=== PATIENT | female | born 2000 | race Two or more races ===

== ENCOUNTER 2022-05-11 20:56 | Inpatient (IN) | payer MEDICAID, OTHER ==
[~2022-05-11] VITALS: Ht 165.1 cm; Wt 81.2 kg
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
[2022-05-11] MEDS ORDERED: ONDANSETRON HCL/PF 4 MG/2 ML VIAL ONE ×2 (21:15→21:20)
[2022-05-11] MEDS ORDERED: MORPHINE SULFATE INJ 4 MG/ML DISP.SYRIN ONE ×2 (21:16→21:20)
--- NOTE | 2022-05-11 21:21 | NUR ---
PATIENT TAKE TO CT VIA [facility]
--- NOTE | 2022-05-11 21:24 | NUR ---
WASTED MORPHINE 4MG AND ZOFRAN 4MG DUE TO ALREADY GIVEN BY ANOTHER NURSE. WASTE VERIFIED BY 2 RNS.
[2022-05-11] MEDS ORDERED: ONDANSETRON HCL/PF 4 MG/2 ML VIAL IV ONE (21:30)
[2022-05-11] MEDS ORDERED: MORPHINE SULFATE INJ 2 MG/ML DISP.SYRIN IV ONE (21:30)
--- NOTE | 2022-05-11 21:58 | NUR ---
COVID SWAB COLLECTED
--- NOTE | 2022-05-11 21:58 | NUR ---
CALLED [facility] DR. HERNANDEZ NO ANSWER, WAS TOLD THEY WOULD CALL BACK WHEN THEY GET AHOLD OF HIM.
[2022-05-11] MEDS ORDERED: IV NS 0.9% 1,000 ML IV ONE (22:00)
[2022-05-11] MEDS ORDERED: HYDROMORPHONE 1 MG/1 ML DISP.SYRIN IV ONE ×2 (22:00→23:00)
[2022-05-11] MEDS ORDERED: HYDROMORPHONE 1 MG/1 ML DISP.SYRIN ONE ×2 (22:06→22:58)
--- NOTE | 2022-05-11 22:09 | NUR ---
[employer] AT PT'S BEDSIDE
[2022-05-11 23:17] LABS: BASOPHILS # (AUTO) 0.1 K/uL (0.0-0.2); BASOPHILS % (AUTO) 0.3 % (0.0-2.0); EOSINOPHILS % (AUTO) 0.5 % (0.0-6.0); HEMATOCRIT 33 % (33-45); HEMOGLOBIN 10.4 g/dL (11.5-14.8); LYMPHOCYTES # (AUTO) 1.4 K/uL (0.8-4.8); LYMPHOCYTES % (AUTO) 7.7 % (20.0-44.0); MEAN CORPUSCULAR HGB CONC 32 g/dl (31.0-36.0); MEAN CORPUSCULAR VOLUME 66 fL (82-100); MONOCYTES # (AUTO) 1.2 K/uL (0.1-1.30); MONOCYTES % (AUTO) 6.7 % (2.0-12.0); NEUTROPHILS # (AUTO) 15.8 K/uL (1.8-8.9); NEUTROPHILS % (AUTO) 84.8 % (43.0-81.0); PLATELET COUNT (AUTO) 278 K/uL (150-450); WHITE BLOOD COUNT (AUTO) 18.6 K/uL (4.3-11.0)
[2022-05-11 23:28] LABS: CALCIUM, SERUM 8.2 mg/dL (8.5-10.1); CREATININE 0.7 mg/dL (0.6-1.3); POTASSIUM 3.8 mmol/L (3.5-5.1)
[2022-05-11 23:42] LABS: ALBUMIN 3.5 g/dL (3.4-5.0); BILIRUBIN,DIRECT 0.1 mg/dL (0.0-0.2); BILIRUBIN,TOTAL 0.2 mg/dL (0.2-1.0); TOTAL PROTEIN, SERUM 6.6 g/dL (6.4-8.2)
[2022-05-12] MEDS ORDERED: IV NS 0.9% 1,000 ML IV PRN (00:30)
[2022-05-12] MEDS ORDERED: ONDANSETRON HCL/PF 4 MG/2 ML VIAL IVP PRN (00:30)
[2022-05-12] MEDS ORDERED: MAGNESIUM HYDROXIDE 30 ML UDC PO PRN (00:30)
[2022-05-12] MEDS ORDERED: ACETAMINOPHEN 325 MG TABLET PO PRN (00:30)
[2022-05-12] MEDS ORDERED: MAG HYDROX/AL HYDROX/SIMETH 30 ML UDC PO PRN (00:30)
[2022-05-12] MEDS ORDERED: Z GUARD REMEDY 4 OZ OINT TP PRN (00:30)
[2022-05-12] MEDS ORDERED: ZOLPIDEM TARTRATE 5 MG TABLET PO PRN (00:30)
[2022-05-12] MEDS ORDERED: HYDROCODONE/APAP 10/325MG TABLET ONE ×2 (02:30→08:02)
[2022-05-12] MEDS: HYDROCODONE/APAP 10/325MG TABLET PO PRN ×3 (02:34→17:51)
[2022-05-12] MEDS ORDERED: MORPHINE SULFATE INJ 2 MG/ML DISP.SYRIN ONE ×2 (04:50→09:57)
[2022-05-12] MEDS: MORPHINE SULFATE INJ 2 MG/ML DISP.SYRIN IV PRN ×2 (04:56→10:02)
--- NOTE | 2022-05-12 07:25 | NUR ---
PT AWAKE AND VERBALLY RESPONSIVE, NOT IN ACUTE DISTRESS. UNABLE TO RATE PAIN AT THIS TIME BUT STATES THAT SHE IS STILL OKAY; PAIN MEDICATION OFFERED TO PT BUT STATES THAT SHE CAN GET IT IN ABOUT AN HOUR.
[2022-05-12] MEDS: DOCUSATE SODIUM 100 MG CAPSULE PO SCH ×2 (09:00→17:18)
--- NOTE | 2022-05-12 09:45 | NUR ---
PT AT BEDSIDE FOR EVAL
--- NOTE | 2022-05-12 11:57 | NUR ---
BED 311-1
--- NOTE | 2022-05-12 12:03 | NUR ---
PT REPORT GIVEN TO JOE VO
--- NOTE | 2022-05-12 12:05 | NUR ---
MS RN NOTES: PT RECEIVED FROM ER STAFF VIA [employer]. OBSERVED PT WALK SLOWLY TO BED, WITH STEADY GAIT. PT IS ALERT AND ORIENTED X4, ABLE TO VERBALIZED NEEDS. PT ORIENTED TO STAFF AND UNIT. VITALS AT ADMISSION STABLE- 124/70; HR- 80, RR- 18, TEMP- 98.4, O2 SAT @ 97%. PT IS ON RA WITH NO S/S OF SOB AND ACUTE DISTRESS. IV ACCESS AT L HAND # 20 NOTED, SL, PATENT. R ARM SLING NOTED. SKIN IS INTACT.PT C/O OF PAIN 6-02/02 BUT DECLINES PAIN MEDICATION AT THIS TIME. PT STATES WILL TRY TO EAT FIRST THEN SEE IF SHE WANTS PAIN MEDICATION. MADE PT COMFORTABLE, CLEAN AND DRY. TABLE AND CALL LIGHT WITHIN REACH. SAFETY MEASURES IN PLACE, WILL CONT WITH PLAN OF CARE THROUGHOUT SHIFT.
--- NOTE | 2022-05-12 12:08 | NUR ---
PT TRANSFERRED TO [facility] VIA [facility]. WARM HANDOFF GIVEN TO RN ASSIGNED
[2022-05-12 13:00] VITALS: BP_SYST 115; BP_SYST 124; BP_DIAS 60; BP_DIAS 70
[2022-05-12 16:00] VITALS: BP 115/60
--- NOTE | 2022-05-12 17:50 | NUR ---
MS RN NOTES: PT C/O OF PAIN AT THE IV SITE. IV SITE APPEARED RED AND IS PAINFUL TO TOUCH. RN DC'D IV ACCESS, GAVE PT WARM COMPRESS TO ALLEVIATE DISCOMFORT. PT DECLINED IV INSERTION AT THE MOMENT. STATES " I JUST WANT TO REST RIGHT NOW". PT GIVEN PO PAIN MEDICATION, WILL REASSESS APPROPRIATE.
--- NOTE | 2022-05-12 19:28 | NUR ---
MS RN CLOSING NOTES: PT IS AWAKE, ALERT AND ORIENTED X4, ABLE TO VERBALIZED NEEDS. PT IS ON RA WITH NO S/S OF SOB AND ACUTE DISTRESS. IV ACCESS DC'D DUE TO PT C/O PAIN AT IV SITE, DECLINED IV INSERTION FOR NOW. STATES " I'LL SEE, I JUST WANT TO REST RIGHT NOW". R ARM SLING NOTED. SKIN IS INTACT. PT C/O PAIN 5-6/10 CURRENTLY BUT DECLINES PAIN MED FOR NOW , GIVEN WARM COMPRESS FOR ARM. MADE PT COMFORTABLE, CLEAN AND DRY. TABLE AND CALL LIGHT WITHIN REACH. SAFETY MEASURES IN PLACE, ENDORSED TO PM SHIFT.
--- NOTE | 2022-05-12 19:47 | NUR ---
MS RN CLOSING NOTES: PT IS AWAKE, ALERT AND ORIENTED X4, ABLE TO VERBALIZED NEEDS. PT IS ON RA WITH NO S/S OF SOB AND ACUTE DISTRESS.NO IV ACCESS DUE TO PT DECLINED WAS ENDORSE BY MORNING NURSEMagali ARM SLING NOTED.JAELYN WELL.NO SOMPLAINE OF PAIN/DISCOMFORT AT THIS TIME. CALL LIGHT WITHIN REACH. SAFETY MEASURES IN PLACE,WILL CONTINUE TO MONITOR.
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
== END 2022-05-12 21:20 | disposition left against medical advice (07) | DRG 342 ==
LOC: ER 20:58 → TRANSITION 05-12 00:13 → MED 05-12 13:10
PROVIDERS: ADMIT Nurse Practitioner Acute Care; ATTEND Nurse Practitioner Acute Care
DX: S42.321A Displaced transverse fracture of shaft of humerus, right arm, initial encounter for closed fracture (principal); R65.10 Systemic inflammatory response syndrome (SIRS) of non-infectious origin without acute organ dysfunction; D64.9 Anemia, unspecified; F12.90 Cannabis use, unspecified, uncomplicated; Z20.822 Contact with and (suspected) exposure to COVID-19; V43.62XA Car passenger injured in collision with other type car in traffic accident, initial encounter; Y92.410 Unspecified street and highway as the place of occurrence of the external cause; D72.829 Elevated white blood cell count, unspecified
CPT/HCPCS: 36415; 70450-TC; 71045-TC; 71250-TC; 72170-TC; 73000-TC; 73030-TC; 73060-TC; 80048-TC; 80076-TC; 83690-TC; 84702-TC; 85025-TC; 85730-TC; 87081-TC; 97116-TC; 97530-TC; C9803; G0378; J1170; J2270; J2405; J7030